=== PATIENT | male | born 1995 | race Asian ===

== ENCOUNTER 2024-04-24 23:39 | Emergency (ER) | payer OTHER ==
[~2024-04-24] VITALS: Ht 172.7 cm; Wt 71.2 kg
[2024-04-24 23:46] VITALS: PULSE 93; RESP 18; TEMP 97.7
[2024-04-25] MEDS: SODIUM CHLORIDE 0.9% 1000ML 1,000 ML IV STA (00:09)
[2024-04-25] MEDS: ACETAMINOPHEN 325 MG TAB PO STA (01:27)
[2024-04-25] MEDS ORDERED: ACETAMINOPHEN 325 MG TAB ONE (01:29)
[2024-04-25 01:30] VITALS: BP 127/85; PULSE 86; RESP 18; TEMP 97.7; O2SAT 99
== END 2024-04-25 01:30 | disposition home or self-care (01) ==
LOC: FSED 23:52
DX: R00.2 Palpitations (principal); R51.9 Headache, unspecified; E78.00 Pure hypercholesterolemia, unspecified; Z11.52 Encounter for screening for COVID-19
CPT/HCPCS: 0223U; 71046; 80053; 80307; 81003; 84484; 85025; 93005; 99284; J7030